=== PATIENT | female | born 1980 | race Two or more races ===

== ENCOUNTER 2017-07-02 09:30 | Inpatient (IN) | payer BC ==
[~2017-07-02] VITALS: Ht 162.6 cm; Wt 70.3 kg
[~2017-07-02 09:30] MED LIST: IBUPROFEN800 MG ORAL; NKM; TRAMADOL HCL50 MG ORAL
[2017-07-04] MEDS ORDERED: ADDERALL XR 3030 MG ORAL (15:31)
[2017-07-04] MEDS ORDERED: ORTHO TRI-CYCL1 EACH PO (15:33)
[2017-07-04] MEDS ORDERED: EFFEXOR XR150 MG ORAL (15:34)
[2017-07-04] MEDS ORDERED: LEVOTHYROXINE75 MCG ORAL (15:37)
[2017-07-04] MEDS ORDERED: LYRICA75 M1 ORAL (15:37)
[2017-07-04] MEDS ORDERED: PROPRANOLOL HCL10 MG ORAL (15:38)
[2017-07-04] MEDS ORDERED: QUETIAPINE FUMA25 MG ORAL (15:39)
[2017-07-04] MEDS ORDERED: ZITHROMAX250 MG ORAL (15:43)
[2017-07-04] MEDS ORDERED: CYANOCOBALAMIN PO (15:48)
[2017-07-04] MEDS ORDERED: MAGNESIUM PO (15:48)
[2017-07-04] MEDS ORDERED: ERYTHROCIN250 MG ORAL (15:49)
[2017-07-05] VITALS (12 sets, daily range): BP systolic 88–100; BP diastolic 42–64
[2017-07-05] MEDS ORDERED: Vancomycin 1gm/D5W 275ml IVPB ONE ×2 (06:00)
[2017-07-05] MEDS ORDERED: Pantoprazole Inj IVP ONE (06:00)
--- NOTE | 2017-07-05 08:30 | Pre-Procedure Note/Attestation ---
Pre-Procedure Note/Attestation Complete Prior to Procedure Planned Procedure: bilateral Procedure Narrative: Posterior lumbar decompression, discectomy, interbody fusion, pedicle screw fixation, posterolateral arthrodesis at the L5-S1 level with allograft, autograft, iliac crest bone marrow aspirate and PEEK/titanium graft. Attestation I attest that I discussed the nature of the procedure; its benefits; risks and complications; and alternatives (and the risks and benefits of such alternatives ), prior to the procedure, with the patient (or the patient's legal patient portal representative). I attest that, if there was a reasonable possibility of needing a blood transfusion, the patient (or the patient's legal patient portal representative) was given the [place] [facility] standardized written summary, pursuant to the Emmanuel Rod[place] Blood Safety Act ([place] Health and Safety Code # 1645, as amended). I attest that I re-evaluated the patient just prior to the surgery and that there has been no change in the patient's H&P, except as documented below: AILEEN RAHMAN July 05, 2017 08:30
[2017-07-05] MEDS ORDERED: EPINEPHrine 1mg/1ml Amp ONE (08:42)
[2017-07-05] MEDS ORDERED: Pantoprazole Inj ONE (08:42)
[2017-07-05] MEDS ORDERED: Vancomycin 1gm inj IVPB ONE (08:42)
[2017-07-05] MEDS ORDERED: Thrombin 5000 units spray kit TOPIC ONE ×2 (08:43→13:11)
[2017-07-05] MEDS ORDERED: Thrombin 5000 units TOPIC ONE (08:43)
[2017-07-05] MEDS ORDERED: Bupivacaine 0.5% Inj 30 ml vial INJ ONE (08:44)
[2017-07-05] MEDS ORDERED: Gelfoam Absorbable 1gm powder pkt TOPIC ONE ×2 (08:44→13:11)
[2017-07-05] MEDS ORDERED: Bacitracin 50000 Units Vial ONE (08:45)
[2017-07-05] MEDS ORDERED: Heparin 1000 units/ml 1ml Vial ONE (08:47)
[2017-07-05] MEDS ORDERED: SYMBICORT 80-10.2 G1 IH (08:53)
[2017-07-05] MEDS ORDERED: Zemuron 50mg/5ml Inj IV ONE (09:09)
[2017-07-05] MEDS ORDERED: Succinylcholine 20mg/ml 10ml vial ONE (09:09)
[2017-07-05 09:11] LABS: APPEARANCE,URINE TURBID; BILIRUBIN, URINE NEGATIVE (NEGATIVE); COLOR,URINE PALE YELLOW; GLUCOSE, URINE (UA) NEGATIVE (NEGATIVE); KETONES,URINE NEGATIVE (NEGATIVE); LEUKOCYTE ESTERASE ,URINE 2+ (NEGATIVE); NITRITE,URINE NEGATIVE (NEGATIVE); PH,URINE 7 (4.5-8.0); PROTEIN,URINE 2+ (NEGATIVE); UROBILINOGEN,URINE NORMAL MG/DL (0.0-1.0)
[2017-07-05] MEDS ORDERED: Midazolam 2mg/2ml Inj ONE ×2 (09:13→15:55)
[2017-07-05] MEDS ORDERED: Lidocaine 1% Plain 30 ml INJ ONE (09:13)
[2017-07-05] MEDS ORDERED: fentaNYL 100 mcg/2 mL IV ONE ×2 (09:13→14:13)
[2017-07-05] MEDS ORDERED: NS Irrig 1000ml IRRIG ONE ×2 (10:00→12:06)
--- NOTE | 2017-07-05 10:00 | Anethesia Preoperative Eval ---
Anesthesia Pre-op PMH/ROS General Date of Evaluation: July 05, 2017 Time of Evaluation: 09:59 Anesthesiologist: Francisco ASA Score: ASA 2 Mallampati Score Class I : Soft palate, uvula, fauces, pillars visible Class II: Soft palate, uvula, fauces visible Class III: Soft palate, base of uvula visible Class IV: Only hard plate visible Mallampati Classification: Class II Surgeon: Samantha Diagnosis: Lumbar radiculopathy Surgical Procedure: L5-S1 laminotomy with decompression Anesthesia History: emergence delirium Family History: no anesthesia problems Allergies: Coded Allergies: PROPOFOL (Verified Adverse Reaction, Unknown, fainting spells, 07/04/17) Uncoded Allergies: surgical tape (Allergy, Severe, rash, 07/04/17) Medications: see eMAR Past Medical History Cardiovascular: Denies: HTN, CAD, [place], valve dz, arrhythmia, other Pulmonary: Denies: asthma, COPD, MITZY, other Gastrointestinal/Genitourinary: Reports: GERD; Denies: CRI, ESRD, other Neurologic/Psychiatric: Reports: depression/anxiety, other - chronic pain; Denies: dementia, CVA, TIA Endocrine: Denies: DM, hypothyroidism, steroids, other HEENT: Denies: cataract (L), cataract (R), glaucoma, [place] (L), [place] (R), other Hematology/Immune: Denies: anemia, DVT, bleeding disorder, other Musculoskeletal/Integumentary: Denies: OA, RA, DJD, DDD, edema, other PMH Narrative: as above PSxH Narrative: Breast implants, septoplasty Anesthesia Pre-op Phys. Exam Physician Exam Last Vital Signs Date Time Temp Pulse Resp B/P (MAP) Pulse Ox O2 Delivery O2 Flow Rate FiO2 07/05/17 08:47 97.9 79 18 100/64 99 Room Air 97.9 Constitutional: NAD Neurologic: CN 2-12 intact Cardiovascular: RRR, no M/R/G Respiratory: CTA Gastrointestinal: S/NT/ND Airway Exam Mallampati Score: Class II MO: full Neck: flexible ROM: full Teeth: intact Dentures: no upper, no lower Anesthesia Pre-op A/P Labs see chart Urine Test Test 07/05/17 08:30 Urine HCG, Qualitative Negative (NEGATIVE) Studies Pre-op Studies: EKG - NSR Risk Assessment & Plan Assessment: ASA 2 Plan: GA with ETT prone position neuromonitoring, PONV prevention Status Change Before Surgery: No Pre-Antibiotics Drug: as scheduled Given Within 1 Hr of Incision: Yes Time Given: 10:55 Sherwin Singh MD July 05, 2017 10:00
[2017-07-05] MEDS ORDERED: Morphine Sulfate 10mg/ml Inj ONE (11:11)
[2017-07-05] MEDS ORDERED: Sodium Chloride 10ml vial INJ ONE (11:12)
[2017-07-05] MEDS ORDERED: Glycopyrrolate 0.2mg/ml 1ml Vial ONE (11:16)
[2017-07-05] MEDS ORDERED: Ketorolac 30mg Inj ONE (11:16)
[2017-07-05] MEDS ORDERED: LR 1000ml 1,000 ML IVLG SCH (11:26)
[2017-07-05] MEDS ORDERED: Midazolam 2mg/2ml Inj IVP PRN (11:30)
[2017-07-05] MEDS ORDERED: Metoclopramide 10mg/2ml Inj IVP PRN (11:30)
[2017-07-05] MEDS ORDERED: Acetaminophen (Non formulary) 100 ML IV SCH ×2 (11:30→20:00)
[2017-07-05] MEDS ORDERED: DiphenhydrAMINE 50mg/ml Inj IVP PRN (11:30)
[2017-07-05] MEDS ORDERED: fentaNYL 100 mcg/2 mL IV PRN (11:30)
[2017-07-05] MEDS ORDERED: Meperidine 50mg/ml Inj(FOR RIGORS ONLY) IV PRN (11:30)
[2017-07-05] MEDS ORDERED: Ketorolac 30mg Inj IV PRN (11:30)
[2017-07-05] MEDS ORDERED: Phenylephrine 10mg/ml Vial ONE (11:32)
[2017-07-05] MEDS ORDERED: Propofol 200mg/20ml IV ONE (13:23)
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
[2017-07-05] MEDS ORDERED: Milk of Magnesia 30ml Ud ORAL PRN (16:00)
[2017-07-05] MEDS ORDERED: traMADol 50mg tab ORAL PRN (16:00)
[2017-07-05] MEDS ORDERED: HYDROcodone/Acetamin 7.5/325 tab ORAL PRN (16:00)
--- NOTE | 2017-07-05 16:01 | Immediate Post-Op Evaluation ---
Immediate Post-Op Evalulation Immediate Post-Op Evalulation Procedure: L5-S1 laminotomy with decompression and interbody fusion Date of Evaluation: July 05, 2017 Time of Evaluation: 16:00 IV Fluids: 1800 Blood Products: none Estimated Blood Loss: 200 Urinary Output: 300 Blood Pressure Systolic: 98 Blood Pressure Diastolic: 56 Pulse Rate: 92 Respiratory Rate: 20 O2 Sat by Pulse Oximetry: 99 Temperature (Fahrenheit): 98.8 Pain Score (1-10): 1 Nausea: No Vomiting: No Complications none Patient Status: reacts, patent, extubated, none Hydration Status: adequate Sherwin Singh MD July 05, 2017 16:01
[2017-07-05] MEDS ORDERED: Cyclobenzaprine 10mg Tab ORAL PRN (16:30)
--- NOTE | 2017-07-05 16:45 | Diagnostic Imaging Report ---
Indication: Pain, intraoperative Technique: Intraoperative images Comparison: none Findings: Intraoperative images demonstrate localizer tool projected over what is presumably L5. Subsequent images demonstrate posterior fusion with placement of a disc spacer at L5-S1. Impression: Intraoperative images, as described
--- NOTE | 2017-07-05 16:45 | General Progress Note ---
Progress Note Progress Note Neurosurgery Post-op S/ Comfortable. No leg pain O/ Vs. Last 24 Hour Vital Signs Date Time Temp Pulse Resp B/P (MAP) Pulse Ox O2 Delivery O2 Flow Rate FiO2 07/05/17 16:15 97 20 97/46 99 Nasal Cannula 2.0 07/05/17 16:07 98 20 88/46 99 Simple Mask 6.0 07/05/17 16:01 209.8 92 20 99 07/05/17 15:57 108 20 92/42 99 Simple Mask 6.0 07/05/17 15:52 98 20 88/42 99 Simple Mask 6.0 07/05/17 15:47 98.9 110 22 92/50 98 Simple Mask 6.0 98.9 07/05/17 11:30 98.8 07/05/17 08:47 97.9 79 18 100/64 99 Room Air 97.9 Alert oriented Moves all extremities Lowers are 5/5 Incision is dry A/p Doing well Admit Internal medicine AILEEN RAHMAN July 05, 2017 16:45
[2017-07-05] MEDS: Docusate Sod/Senna tab ORAL SCH (18:12)
[2017-07-05] MEDS: Docusate 100mg cap ORAL SCH (18:12)
[2017-07-05] MEDS: NS w/KCl 20mEq 1,000 ML IV SCH (18:13)
[2017-07-05] MEDS ORDERED: VALACYCLOVIR1000 MG ORAL (20:50)
[2017-07-05] MEDS ORDERED: FLUTICASONE PRO16 G1 NASAL (20:50)
[2017-07-05] MEDS ORDERED: BENZONATATE200 MG ORAL (20:50)
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
[2017-07-05] MEDS: Vancomycin 1 GM in D5W 275 ML IV SCH (21:45)
--- NOTE | 2017-07-05 22:25 | General Progress Note ---
Assessment/Plan Status Narrative s/p complex spine surgery perop had a cough treated with zithromax continue iwht zithromax pt ot dvt prophylaxis paincontrol willmonitor closely Subjective Date patient seen: July 05, 2017 Time patient seen: 22:23 Allergies: Coded Allergies: PROPOFOL (Verified Adverse Reaction, Unknown, fainting spells, 07/04/17) Uncoded Allergies: surgical tape (Allergy, Severe, rash, 07/04/17) Subjective doing ok s/p Procedure: 1. Posterior lumbar decompressive surgery, Bilateral L5 hemilaminotomies, medial facetectomies and L5 foraminotomies. 2. Bilateral S1 foraminotomies 3. Transpedicular fixation at L5 and S1 levels, with 50 x 6.0 and 45 by 7.0 mm Medacta screws, through intermuscular approach. 4. Interbody PEEK graft, 12 x 27 mm, filled with [place], autologous bone and iliac crest bone marrow aspirate concentrate 5.[place] of right iliac crest bone marrow for grafting. 6. [place] of local bone from laminectomy for grafting. 7. Application of epidural fat graft bilaterally, L5-S1. 8. complete right sided facetectomy and transforaminal approach for complete discectomy and insertion of biomechanical device, PEEK cage. 9. Intraoperative microdissection and neurolysis of the L5 root on the right side. 10. Intra-operative supervision, use and interpretation of fluoroscopy for localization and instrumentation of spine. 11. Plastic surgical closure of a 8 cm lumbar wound. has some pain no fevernochills Objective Last 24 Hour Vital Signs Date Time Temp Pulse Resp B/P (MAP) Pulse Ox O2 Delivery O2 Flow Rate FiO2 07/05/17 21:04 97 Nasal Cannula 2.0 28 07/05/17 21:04 Nasal Cannula 2.0 28 07/05/17 18:00 98.0 90 17 90/54 97 98.0 07/05/17 17:15 98.2 104 20 91/46 95 98.2 07/05/17 16:57 98.9 98 19 99/51 99 Nasal Cannula 2.0 98.9 07/05/17 16:45 98.9 99 18 97/48 99 Nasal Cannula 2.0 98.9 07/05/17 16:30 98 19 98/46 99 Nasal Cannula 2.0 07/05/17 16:15 97 20 97/46 99 Nasal Cannula 2.0 07/05/17 16:07 98 20 88/46 99 Simple Mask 6.0 07/05/17 16:01 209.8 92 20 99 07/05/17 15:57 108 20 92/42 99 Simple Mask 6.0 07/05/17 15:52 98 20 88/42 99 Simple Mask 6.0 07/05/17 15:47 98.9 110 22 92/50 98 Simple Mask 6.0 98.9 07/05/17 11:30 98.8 07/05/17 08:47 97.9 79 18 100/64 99 Room Air 97.9 Laboratory Tests 07/05/17 08:20: Urine Color Pale yellow, Urine Appearance Turbid, Urine pH 7, Urine Specific [place] 1.005, Urine Protein 2+H, Urine Glucose (UA) Negative, Urine Ketones Negative, Urine Occult Blood 5+H, Urine Nitrite Negative, Urine Bilirubin Negative, Urine Urobilinogen Normal, Urine Leukocyte Esterase 2+H, Urine RBC 20- 30H, Urine WBC 10-15H, Urine Squamous Epithelial Cells ManyH, Urine Bacteria Few 07/05/17 08:30: Urine HCG, Qualitative Negative Height (Feet): 5 Height (Inches): 4.00 Weight (Pounds): 155 General Appearance: WD/WN Cardiovascular: normal rate, regular rhythm, no JVD Respiratory/Chest: lungs clear Abdomen: soft ADRIANA WILSON July 05, 2017 22:25
[2017-07-05] MEDS: Morphine Sulfate 4mg/ml Inj IVP PRN (22:32)
[2017-07-05] MEDS: Benzonatate 100mg Perles ORAL SCH (22:47)
[2017-07-06] VITALS: BP 99/56
[2017-07-06] MEDS: Morphine Sulfate 4mg/ml Inj IVP PRN (03:19)
[2017-07-06 04:00] VITALS: BP 100/57
[2017-07-06] MEDS ORDERED: Acetaminophen (Non formulary) 100 ML IV SCH (04:00)
[2017-07-06] MEDS: NS w/KCl 20mEq 1,000 ML IV SCH (04:08)
[2017-07-06 07:19] LABS: BASOPHILS % (AUTO) 0.4 % (0.0-2.0); EOSINOPHILS % (AUTO) 0.1 % (0.0-3.0); LYMPHOCYTES % (AUTO) 13.9 % (20.0-45.0); MEAN CORPUSCULAR VOLUME 93 FL (80-99); MONOCYTES % (AUTO) 9.9 % (1.0-10.0); NEUTROPHILS % (AUTO) 75.7 % (45.0-75.0); PLATELET COUNT 165 K/UL (150-450); RED BLOOD COUNT 3.23 M/UL (4.20-5.40); RED CELL DISTRIBUTION WIDTH 11.5 % (11.6-14.8)
[2017-07-06 07:36] LABS: ANION GAP 6 mmol/L (5-15); BLOOD UREA NITROGEN 7 mg/dL (7-18); CALCIUM 8.3 MG/DL (8.5-10.1); CARBON DIOXIDE 27 MMOL/L (21-32); CHLORIDE 105 MMOL/L (98-107); CREATININE 0.7 MG/DL (0.55-1.30); POTASSIUM 4.1 MMOL/L (3.5-5.1); SODIUM 138 MMOL/L (136-145)
[2017-07-06 08:00] VITALS: BP 93/56
[2017-07-06] MEDS: Benzonatate 100mg Perles ORAL SCH ×2 (08:35→13:05)
[2017-07-06] MEDS: Docusate Sod/Senna tab ORAL SCH (08:35)
[2017-07-06] MEDS: Docusate 100mg cap ORAL SCH (08:35)
[2017-07-06] MEDS: HYDROcodone/Acetamin 7.5/325 tab ORAL PRN ×2 (08:37→13:05)
[2017-07-06] MEDS: Vancomycin 1 GM in D5W 275 ML IV SCH (08:38)
[2017-07-06] MEDS ORDERED: Venlafaxine XR 150mg cap ORAL SCH (09:00)
[2017-07-06] MEDS ORDERED: Lyrica 75mg cap ORAL SCH ×2 (09:00)
[2017-07-06] MEDS ORDERED: Azithromycin 250mg tab ORAL SCH (09:00)
[2017-07-06] MEDS ORDERED: Flonase Nasal Inhaler 16gm NASAL SCH (09:00)
[2017-07-06] MEDS ORDERED: valACYclovir HCL 500mg tab ORAL SCH (09:00)
[2017-07-06] MEDS ORDERED: Propranolol 10mg tab ORAL SCH (09:00)
[2017-07-06] MEDS ORDERED: Flonase Nasal Inhaler 16gm NASAL PRN (09:00)
[2017-07-06] MEDS ORDERED: Sterile Water Irrig 1000ml IRRIG ONE (10:00)
[2017-07-06] MEDS ORDERED: Dexamethasone 4mg/ml vial ONE (10:00)
[2017-07-06] MEDS ORDERED: Neostigmine 1mg/ml 10ml Inj ONE (10:00)
[2017-07-06] MEDS ORDERED: LR 1000ml ONE (10:00)
[2017-07-06] MEDS ORDERED: NS Irrig 1000ml ONE (10:00)
[2017-07-06 12:00] VITALS: BP 93/56
[2017-07-06] MEDS ORDERED: Acetaminophen (Non formulary) 100 ML IV PRN (12:00)
--- NOTE | 2017-07-06 13:13 | General Progress Note ---
Progress Note Progress Note Neurosurgery POD #1 S/ Ambulated several times. No right leg pain. Amezcua removed. O/ vs: Last 24 Hour Vital Signs Date Time Temp Pulse Resp B/P (MAP) Pulse Ox O2 Delivery O2 Flow Rate FiO2 07/06/17 08:38 81 92/63 07/06/17 08:38 97.5 07/06/17 08:37 97.5 07/06/17 08:00 98.3 78 20 93/56 97 Room Air 98.3 07/06/17 04:00 97.5 79 20 100/57 97 Room Air 97.5 07/06/17 00:00 97.7 78 20 99/56 96 Nasal Cannula 2.0 97.7 07/05/17 21:04 97 Nasal Cannula 2.0 28 07/05/17 21:04 Nasal Cannula 2.0 28 07/05/17 20:00 97.4 88 20 100/58 97 Nasal Cannula 2.0 97.4 07/05/17 18:00 98.0 90 17 90/54 97 98.0 07/05/17 17:15 98.2 104 20 91/46 95 98.2 07/05/17 16:57 98.9 98 19 99/51 99 Nasal Cannula 2.0 98.9 07/05/17 16:45 98.9 99 18 97/48 99 Nasal Cannula 2.0 98.9 07/05/17 16:30 98 19 98/46 99 Nasal Cannula 2.0 07/05/17 16:15 97 20 97/46 99 Nasal Cannula 2.0 07/05/17 16:07 98 20 88/46 99 Simple Mask 6.0 07/05/17 16:01 209.8 92 20 99 07/05/17 15:57 108 20 92/42 99 Simple Mask 6.0 07/05/17 15:52 98 20 88/42 99 Simple Mask 6.0 07/05/17 15:47 98.9 110 22 92/50 98 Simple Mask 6.0 98.9 On exam, Alert oriented x 4. Smiling pleasant. Incision is clean dry and intact. Motor 5/5 in the lowers bilaterally. normal sensation in the lower extremities. Labs: Laboratory Tests Test 07/06/17 05:40 White Blood Count 9.0 K/UL (4.8-10.8) Red Blood Count 3.23 M/UL (4.20-5.40) L Hemoglobin 10.0 G/DL (12.0-16.0) L Hematocrit 30.0 % (37.0-47.0) L Mean Corpuscular Volume 93 FL (80-99) Mean Corpuscular Hemoglobin 31.0 PG (27.0-31.0) Mean Corpuscular Hemoglobin Concent 33.3 G/DL (32.0-36.0) Red Cell Distribution Width 11.5 % (11.6-14.8) L Platelet Count 165 K/UL (150-450) Mean Platelet Volume 13.0 FL (6.5-10.1) H Neutrophils (%) (Auto) 75.7 % (45.0-75.0) H Lymphocytes (%) (Auto) 13.9 % (20.0-45.0) L Monocytes (%) (Auto) 9.9 % (1.0-10.0) Eosinophils (%) (Auto) 0.1 % (0.0-3.0) Basophils (%) (Auto) 0.4 % (0.0-2.0) Sodium Level 138 MMOL/L (136-145) Potassium Level 4.1 MMOL/L (3.5-5.1) Chloride Level 105 MMOL/L (98-107) Carbon Dioxide Level 27 MMOL/L (21-32) Anion Gap 6 mmol/L (5-15) Blood Urea Nitrogen 7 mg/dL (7-18) Creatinine 0.7 MG/DL (0.55-1.30) Estimat Glomerular Filtration Rate > 60 mL/min (>60) Glucose Level 106 MG/DL (74-106) Calcium Level 8.3 MG/DL (8.5-10.1) L doing well d/c planning. Instructions d/w pt and nursing. AILEEN RAHMAN July 06, 2017 13:13
[2017-07-06 13:41] VITALS: BP 93/56
--- NOTE | 2017-07-06 13:41 | 48 Hour Post Anesthesia Eval ---
Post Anesthesia Evaluation Procedure: L5-S1 laminotomy with decompression and interbody fusion Date of Evaluation: July 06, 2017 Time of Evaluation: 08:00 Blood Pressure Systolic: 93 0: 56 Pulse Rate: 78 Respiratory Rate: 20 Temperature (Fahrenheit): 98.3 O2 Sat by Pulse Oximetry: 97 Airway: patent Nausea: No Vomiting: No Hydration Status: adequate Mental Status/LOC: patient returned to baseline Post-Anesthesia Complications: none Follow-up care needed: N/A Ambika Edouard M.D. July 06, 2017 13:41
--- NOTE | 2017-07-06 14:33 | General Progress Note ---
Assessment/Plan Status Narrative impression: has been doing better taylor cullen is toelrated lung is clear however has a slight cough with sputum take the full course of z pack. Subjective Date patient seen: July 06, 2017 Time patient seen: 14:30 Constitutional: Reports: no symptoms HEENT: Reports: no symptoms Cardiovascular: Reports: no symptoms Respiratory: Reports: no symptoms Gastrointestinal/Abdominal: Reports: no symptoms Allergies: Coded Allergies: ADHESIVE TAPE (Verified Allergy, Severe, FROM SURIGICAL TAPE:Rash, ) COPIED FROM UNCODED SECTION PROPOFOL (Verified Adverse Reaction, Unknown, fainting spells, 07/04/17) Subjective doing ok s/p Procedure: 1. Posterior lumbar decompressive surgery, Bilateral L5 hemilaminotomies, medial facetectomies and L5 foraminotomies. 2. Bilateral S1 foraminotomies 3. Transpedicular fixation at L5 and S1 levels, with 50 x 6.0 and 45 by 7.0 mm Medacta screws, through intermuscular approach. 4. Interbody PEEK graft, 12 x 27 mm, filled with Teller, autologous bone and iliac crest bone marrow aspirate concentrate 5.Bruner of right iliac crest bone marrow for grafting. 6. Bruner of local bone from laminectomy for grafting. 7. Application of epidural fat graft bilaterally, L5-S1. 8. complete right sided facetectomy and transforaminal approach for complete discectomy and insertion of biomechanical device, PEEK cage. 9. Intraoperative microdissection and neurolysis of the L5 root on the right side. 10. Intra-operative supervision, use and interpretation of fluoroscopy for localization and instrumentation of spine. 11. Plastic surgical closure of a 8 cm lumbar wound. has some pain no fevernochills Objective Last 24 Hour Vital Signs Date Time Temp Pulse Resp B/P (MAP) Pulse Ox O2 Delivery O2 Flow Rate FiO2 07/06/17 13:41 208.9 78 20 97 07/06/17 13:05 97.5 07/06/17 09:35 97.5 07/06/17 09:35 97.5 07/06/17 08:38 81 92/63 07/06/17 08:38 97.5 07/06/17 08:37 97.5 07/06/17 08:00 98.3 78 20 93/56 97 Room Air 98.3 07/06/17 04:00 97.5 79 20 100/57 97 Room Air 97.5 07/06/17 00:00 97.7 78 20 99/56 96 Nasal Cannula 2.0 97.7 07/05/17 21:04 97 Nasal Cannula 2.0 28 07/05/17 21:04 Nasal Cannula 2.0 28 07/05/17 20:00 97.4 88 20 100/58 97 Nasal Cannula 2.0 97.4 07/05/17 18:00 98.0 90 17 90/54 97 98.0 07/05/17 17:15 98.2 104 20 91/46 95 98.2 07/05/17 16:57 98.9 98 19 99/51 99 Nasal Cannula 2.0 98.9 07/05/17 16:45 98.9 99 18 97/48 99 Nasal Cannula 2.0 98.9 07/05/17 16:30 98 19 98/46 99 Nasal Cannula 2.0 07/05/17 16:15 97 20 97/46 99 Nasal Cannula 2.0 07/05/17 16:07 98 20 88/46 99 Simple Mask 6.0 07/05/17 16:01 209.8 92 20 99 07/05/17 15:57 108 20 92/42 99 Simple Mask 6.0 07/05/17 15:52 98 20 88/42 99 Simple Mask 6.0 07/05/17 15:47 98.9 110 22 92/50 98 Simple Mask 6.0 98.9 Intake and Output 07/05/17 07/06/17 19:00 07:00 Intake Total 2150 ml 1346.6 ml Output Total 600 ml 2075 ml Balance 1550 ml -728.4 ml Intake Oral 250 ml 380 ml IV Total 1900 ml 966.6 ml Output Urine Total 400 ml 2075 ml Estimated Blood Loss 200 ml # Voids 1 Laboratory Tests 07/06/17 05:40: White Blood Count 9.0, Red Blood Count 3.23L, Hemoglobin 10.0L, Hematocrit 30.0L , Mean Corpuscular Volume 93, Mean Corpuscular Hemoglobin 31.0, Mean Corpuscular Hemoglobin Concent 33.3, Red Cell Distribution Width 11.5L, Platelet Count 165, Mean Platelet Volume 13.0H, Neutrophils (%) (Auto) 75.7H, Lymphocytes (%) (Auto) 13.9L, Monocytes (%) (Auto) 9.9, Eosinophils (%) (Auto) 0.1, Basophils (%) (Auto) 0.4, Sodium Level 138, Potassium Level 4.1, Chloride Level 105, Carbon Dioxide Level 27, Anion Gap 6, Blood Urea Nitrogen 7, Creatinine 0.7, Estimat Glomerular Filtration Rate > 60, Glucose Level 106, Calcium Level 8.3L Height (Feet): 5 Height (Inches): 4.00 Weight (Pounds): 155 General Appearance: WD/WN Neck: non-tender Cardiovascular: normal rate, regular rhythm, no JVD Respiratory/Chest: lungs clear Abdomen: soft ADRIANA WILSON July 06, 2017 14:33
[2017-07-06] MEDS ORDERED: HYDROCODON-ACE1 EA13 ORAL (14:54)
[2017-07-06] MEDS ORDERED: CYCLOBENZAPRINE10 MG ORAL (14:57)
[2017-07-06] MEDS ORDERED: COLACE100 MG ORAL (14:58)
[2017-07-06] MEDS ORDERED: Tubing IV Secondary IV ONE (15:14)
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
== END 2017-07-06 15:15 | disposition home or self-care (01) | DRG 455 ==
LOC: SDSOVERFLO 07-05 07:59 → 3E 07-05 16:15
DX: M51.17 Intervertebral disc disorders with radiculopathy, lumbosacral region (principal); M43.17 Spondylolisthesis, lumbosacral region; M47.897 Other spondylosis, lumbosacral region; M54.12 Radiculopathy, cervical region; V89.2XXS Person injured in unspecified motor-vehicle accident, traffic, sequela; M79.7 Fibromyalgia; E06.3 Autoimmune thyroiditis; K58.9 Irritable bowel syndrome, unspecified; G47.419 Narcolepsy without cataplexy; F41.9 Anxiety disorder, unspecified; R05 Cough; Z88.8 Allergy status to other drugs, medicaments and biological substances
CPT/HCPCS: 36415; 72020; 76001; 80048; 81003; 81025; 85025; 86850; 86900; 86901; 87081; 87086; 94003; 94150; 94760; C9399; J1580; J2250; J2370; J2405; J2710